=== PATIENT | female | born 1990 | race Caucasian/White ===

== ENCOUNTER 2019-10-13 16:05 | Outpatient (CLI) | payer OTHER, SELFPAY ==
--- NOTE | ~2019-10-13 | XR_ITS ---
XR foot LT min 3V DATE: 10/13/2019 16:39 INDICATION: Bilateral foot pain TECHNIQUE: 4 views COMPARISON: None FINDINGS: Os tibiale externum, normal variant. No fracture, dislocation, periosteal reaction or bone destruction. Joint spaces are preserved. No ero sive changes. IMPRESSION: Os tibiale externum, normal variant Reviewed, dictated and finalized at location A.
--- NOTE | ~2019-10-13 | XR_ITS ---
XR ankle LT min 3V DATE: 10/13/2019 16:39 INDICATION: Left ankle and bilateral foot pain TECHNIQUE: 4 views COMPARISON: None FINDINGS: No fracture or dislocation of the ankle or disruption of the ankle mortise. No periosteal r eaction or bone destruction. IMPRESSION: Negative Reviewed, dictated and finalized at location A. IMPRESSION: Negative
--- NOTE | ~2019-10-13 | XR_ITS ---
XR foot RT min 3V DATE: 10/13/2019 16:38 INDICATION: Bilateral foot pain TECHNIQUE: 4 views COMPARISON: None FINDINGS: Os tibiale externum, normal variant. No fracture, dislocation, periosteal reaction or bone destruction. Joint spaces are preserved. No ero sive changes. IMPRESSION: Os tibiale externum, normal variant Reviewed, dictated and finalized at location A.
== END 2019-10-13 16:06 | disposition home or self-care (01) ==
LOC: ANHIMG 16:15
PROVIDERS: PCP Nurse Practitioner Family; Visit Provider Nurse Practitioner Family
DX: M79.672 Pain in left foot (principal); M25.572 Pain in left ankle and joints of left foot; M79.671 Pain in right foot
CPT/HCPCS: 73610; 73630

== ENCOUNTER 2019-10-25 13:49 | Outpatient (RCR) | payer OTHER, SELFPAY ==
--- NOTE | 2019-10-25 15:17 | PTOPEVAL ---
PHYSICAL THERAPY EVALUATION AND PLAN OF CARE 10-25-2019 The PT evaluation was completed for the diagnosis of B ankle and foot pain. The plan of treatment is for 2x/week for 4 weeks. Thank you for referring Aniyah Gauthier to [facility]. Please review, sign, date and return this plan of care MARY. I agree with and certify that the following plan of care is medically necessary. Referring Physician Date Attending Provider: Kym Wilburn APRN *PT Outpatient Evaluation Start: 10/25/19 14:05 Document 10/25/19 14:06 AJAY (Rec: 10/25/19 15:07 AJAY [email or web address]) Assessment Status Evaluation Outpatient Past Medical History Past Medical History Source of Past Medical History Patient Neurological History Hx Migraine Yes: 2x/week, last 3-4 hours Cardiovascular History Hx Cardiac Disorders No Significant History Respiratory History Hx Respiratory Disorders No Significant History Gastrointestinal History Hx Gastrointestinal Disorders No Significant History Genitourinary History Hx Genitourinary Disorders No Significant History Musculoskeletal History Hx Back Pain Yes: prev chiropractor treatment:curvature of spine Hx Fractures Yes: L ankle fracture- non surgical; Hx Other Musculoskeletal Disorders Yes: B foot pain; B restless leg syndrome; obesity Endocrine History Hx Endocrine Disorders No Significant History HEENT History Hx Tonsillectomy Yes Psychosocial History Hx Anxiety Yes Evaluation Information Problem Diagnosis B foot and ankle pain Onset Apr 2019 Subjective Information gradual worsening pain after Query Text:As Reported By Patient/ working more; chronic pain B Family feet and ankles, have extra bone in feet; had flat feet as child and had L ankle fracture with cast; to see claim taker next week; had 4 ankle braces--hard and soft, sleeves and did not help; have not used arch support or insert into shoe; Diagnostic Tests X-Rays For This Problem Yes: extra bone in arch of feet Previous Treatments Previous Treatments For This Problem no previous PT Prior Level of Function Activity Level (Last 3 Months) 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
--- NOTE | 2019-11-13 10:51 | PCPTNOTE ---
PHYSICAL THERAPY DISCHARGE 11-13-2019 Attending Provider: Kym Wilburn APRN Patient:Aniyha Gauthier Date of :1990 Ms. Gauthier has not returned for any further treatments since the evaluation on 10/25/2019, for the diagnosis of B foot pain. Therefore she will be discharged at this time. The goals were not assessed. Thank you for referring Aniyah to [facility]. Please review, sign, date and return this discharge summary MARY. I have been updated about the patient's current status and I agree with discharge from the above service at this time. Referring Physician Date
== END 2020-01-23 23:59 | disposition home or self-care (01) ==
LOC: ANHPT 13:49
PROVIDERS: PCP Nurse Practitioner Family; Visit Provider Nurse Practitioner Family
DX: M92.61 Juvenile osteochondrosis of tarsus, right ankle (principal)
CPT/HCPCS: 97161

== ENCOUNTER 2020-11-16 20:55 | Emergency (ER) | payer OTHER, SELFPAY ==
[2020-11-16 21:05] VITALS: BP 161/90; PULSE 90; RESP 17; TEMP 36.5; O2SAT 97
[2020-11-17 00:16] VITALS: BP 113/80; PULSE 81; RESP 14; O2SAT 100
--- NOTE | 2020-11-17 00:16 | ED.GENADULT ---
HPI - General Adult General Chief complaint: Unspecified Stated complaint: COVID Positive,wants to see provider about sympto Time Seen by Provider: 11/17/20 00:09 History of Present Illness HPI narrative: Patient a 30-year-old female who presents the emergency department with chief complaint of dizziness and nasal burning. The patient reports she was diagnosed with COVID-19 about 10 days ago reports she is still having symptoms and still feeling unwell. The patient denies fever at this point but states that she still feels off reports that she has nasal burning denies shortness of breath denies chest pain denies vomiting denies diarrhea Related Data Home Medications Medication Instructions Recorded Confirmed cetirizine [Zyrtec] 10 mg PO DAILY 11/16/20 11/16/20 fluoxetine mg 11/16/20 loratadine [Claritin] 10 mg PO DAILY 11/16/20 11/16/20 topiramate 11/16/20 Allergies Allergy/AdvReac Type Severity Reaction Status Date / Time No Known Allergies Allergy Verified 11/16/20 21:29 Review of Systems Review of Systems: Narrative: A 10 system review of systems was completed on the patient and is negative except for what is stated in the HPI. Nursing and ancillary documentation was reviewed. [facility] Social History Social History Gender identity (if verbalized by the patient): Female Exam Narrative: Exam Narrative: GENERAL: Well-appearing, well-nourished, and in no acute distress. HEAD: Normocephalic, atraumatic. EYES: PERRLA and EOMI. ENT: Nares clear, no rhinorrhea or epistaxis. Mucous membranes moist. NECK: Supple. CHEST: Clear to auscultation. No respiratory distress. HEART: Regular rate and rhythm. No murmur heard. Normal peripheral pulses. ABDOMEN: Soft, nontender, nondistended, normal active bowel sounds. EXTREMITIES: Normal range of motion. No edema. SKIN: Warm, dry, no rash. NEURO: No focal deficits. Alert and oriented x3. PSYCH: Normal mood and affect. Course Vital Signs Vital signs: Vital Signs Temperature 36.5 C 11/16/20 21:05 Pulse Rate 90 11/16/20 21:05 Respiratory Rate 17 11/16/20 21:05 Blood Pressure 161/90 H 11/16/20 21:05 Pulse Oximetry 97 11/16/20 21:05 Temperature 36.5 C 11/16/20 21:05 Pulse Rate 90 11/16/20 21:05 Respiratory Rate 17 11/16/20 21:05 Blood Pressure 161/90 H 11/16/20 21:05 Pulse Oximetry 97 11/16/20 21:05 Medical Decision Making Vital Signs Vital Signs: Vital Signs Temperature 36.5 C 11/16/20 21:05 Pulse Rate 90 11/16/20 21:05 Respiratory Rate 17 11/16/20 21:05 Blood Pressure 161/90 H 11/16/20 21:05 Pulse Oximetry 97 11/16/20 21:05 Temperature 36.5 C 11/16/20 21:05 Pulse Rate 90 11/16/20 21:05 Respiratory Rate 17 11/16/20 21:05 Blood Pressure 161/90 H 11/16/20 21:05 Pulse Oximetry 97 11/16/20 21:05 Discharge Plan Discharge Clinical Impression: COVID-19 Patient Disposition: Home, Self-Care Condition: Stable Instructions: Antibiotic Form, COVID-19 (Coronavirus Disease 2019) (ED), Upper Respiratory Infection (ED) Prescriptions: No Action fluoxetine 40 mg capsule RF: 0 cetirizine [Zyrtec] 10 mg Tablet 10 mg PO DAILY RF: 0 topiramate 25 mg tablet RF: 0 loratadine [Claritin] 10 mg Tablet 10 mg PO DAILY RF: 0 Follow-up/Referrals: Cosmo,Kym Armando APRN [Primary Care Provider] - Stand Alone Forms: Work/School Release IP Time of Disposition: 00:18
--- NOTE | 2020-11-17 00:16 | PC.NURSE ---
Pt here after testing positive for covid 4 days ago. c/o nasal pain and dizziness. no s/s of acute distress. vitals obtained.
== END 2020-11-17 00:54 | disposition home or self-care (01) ==
PROVIDERS: Emergency Provider Emergency Medicine; PCP Nurse Practitioner Family
DX: U07.1 COVID-19 (principal)
CPT/HCPCS: 99281

== ENCOUNTER 2022-04-11 16:05 | Emergency (ER) | payer MEDICAID, SELFPAY ==
[2022-04-11] VITALS (10 sets, daily range): BP systolic 100–125; BP diastolic 61–76; PULSE 59–82; RESP 13–26; TEMP 36.6; O2SAT 100
--- NOTE | ~2022-04-11 | US_ITS ---
EXAMINATION: US OB <=14 wk fetus w TV INDICATION: abdominal pain TECHNIQUE: Sonography of the pelvis was performed by transabdominal and transvaginal techniques. COMPARISON: None. RESULT: Uterus: Orientation: Anteverted. 9.1 x 4.6 x 4.4 cm. Myometrium: homogeneous echogenicity. Cervix is long and closed. Gestation: - Intrauterine gestational sac: Single present. - Yolk sac: Present, not directly measured. - Embryo: Single present. - O'Brien rump length: 0.44 cm, corresponding gestational age 6 weeks, 1 days. -Gestational heart rate: present 109 bpm. -Subgestational hematoma: 0.7 x 1.0 x 0.9 cm hypoechoic collection adjacent to the gestational sac. Right ovary: 2.3 x 2.3 x 2.2 cm. Normal sonographic appearance with physiologic follicles. Corpus luteum. Left ovary: 1.9 x 2.1 x 1.7 cm. Normal sonographic appearance with physiologic follicles. . Pelvis free fluid: None. IMPRESSION: Single, live intrauterine gestation. Estimated Gestational Age: 6 weeks, 1 days by crown rump length. IRIS by ultrasound 12/04/2022. 1 cm mathews bgestational hematoma. Reviewed, dictated and finalized at location K. IMPRESSION: Single, live intrauterine gestation. Estimated Gestational Age: 6 weeks, 1 days by crown rump length. IRIS by ultras ound 12/04/2022. 1 cm subgestational hematoma.
[2022-04-11 16:59] LABS: Basophils Percent Auto 0.3 % (0.2-1.2); Eosinophils Absolute Auto 0.1 K/mm3 (0-0.3); Eosinophils Percent Auto 0.6 % (0-4.4); Hematocrit 44.2 % (37.0-47.0); Immature Granulocyte Absolute 0.03 K/mm3 (0.00-0.031); Immature Granulocyte Percent A 0.3 % (0-0.5); Lymphocytes Absolute Auto 2.07 K/mm3 (0.9-3.2); Lymphocytes Percent Auto 20.1 % (18.3-44.2); Mean Corpuscular HGB Conc 33.9 g/dl (32-36); Mean Corpuscular Hemoglobin 29.7 pg (26-34); Mean Corpuscular Volume 87.5 fl (80-100); Mean Platelet Volume 9.9 fl (7.4-10.4); Monocytes Absolute Auto 0.6 K/mm3 (0.1-0.6); Monocytes Percent Auto 6.2 % (2.6-8.5); Neutrophils Absolute Auto 7.5 K/mm3 (1.3-6.7); Neutrophils Percent Auto 72.5 % (45.5-73.1); Platelet Count Result 293 k/mm3 (150-375); Red Blood Count 5.05 M/mm3 (4.2-5.4); Red Cell Distribution Width 13.2 % (11.5-14.5); White Blood Count 10.3 K/mm3 (4.5-10.0)
[2022-04-11] MEDS: diphenhydrAMINE HCl INJ 50 MG/ML VIAL 25 MG IV PUSH (17:18)
[2022-04-11] MEDS: METOCLOPRAMIDE HCL INJ 10 MG/2 ML VIAL IV PUSH (17:18)
[2022-04-11] MEDS: DEXTROSE 5%/LACTATED RINGERS 1,000 ML 1000 ML IV CONT (17:20)
[2022-04-11] MEDS: LACTATED RINGERS 1,000 ML 999 ML IV CONT (17:20)
[2022-04-11 17:23] LABS: Alanine Aminotransferase 50 U/L (6-35); Albumin Level 4.5 g/dL (3.5-5.1); Alkaline Phosphatase 68 U/L (38-126); Anion Gap 10 mmol/L (8-16); Aspartate Amino Transferase 40 U/L (14-36); Bilirubin,Total 0.3 mg/dL (0.2-1.3); Blood Urea Nitrogen 11 mg/dL (7-17); Calcium 9.6 mg/dL (8.4-10.2); Carbon Dioxide 23 mmol/L (22-30); Chloride 102 mmol/L (98-107); Estimated CRCL calculation 106 ml/min; Estimated Glomerular Filt Rate > 60; Glucose 91 mg/dL (65-110); Lipase 67 U/L (23-300); Potassium 3.9 mmol/L (3.4-5.0); Sodium 135 mmol/L (137-145)
[2022-04-11 18:26] LABS: Add Urine Microscopic? NO; Appearance Urine Clear (Clear); Bilirubin Urine Negative (Negative); Blood Urine Negative (Negative); Color Urine Straw (Yellow); Glucose Urine UA Negative (Negative); Ketones Urine Negative (Negative); Leukocyte Esterase Ur Negative LEU/UL (Negative); Nitrate Urine Negative (Negative); Protein Urine Negative (Negative); Specific Grav Ur 1.006 (1.001-1.035); Urobilinogen Urine Negative mg/dL (<2.0)
--- NOTE | 2022-04-11 19:51 | ED.PREGNANCY ---
HPI - General Chief complaint: Nausea/Vomiting/Diarrhea Stated complaint: nausea, vomiting, migraine. 6 weeks Time Seen by Provider: 04/11/22 16:42 Source: patient and RN notes reviewed Mode of arrival: ambulatory Limitations: no limitations History of Present Illness HPI Narrative: This is a 31 year old female G1Po who presents for nausea and vomiting. Patient reports positive test march 30. She was unsure of her LMP in February so she went to [facility] for an ultrasound. She was told that there was a yolk sac but no pole and she needed repeat US. She reports intractable nausea and vomiting for 2 weeks. She took zofran today but she is still severely nauseous. She denies abdominal pain, vaginal bleeding, fever, chills, cough, chest pain or URI symptoms. She is going to make an appointment with [facility]. Related Data Home Medications Medication Instructions Recorded Confirmed cetirizine 10 mg tablet (Zyrtec) 10 mg PO DAILY 11/16/20 11/16/20 fluoxetine 40 mg capsule mg 11/16/20 loratadine 10 mg tablet (Claritin) 10 mg PO DAILY 11/16/20 11/16/20 topiramate 25 mg tablet 11/16/20 Allergies Allergy/AdvReac Type Severity Reaction Status Date / Time No Known Allergies Allergy Verified 11/16/20 21:29 Review of Systems Review of Systems: All systems reviewed & are unremarkable except as noted in HPI and below Constitutional: Constitutional: Denies chills and Reports fatigue Cardiovascular: Cardiovascular: Denies chest pain Gastrointestinal: Gastrointestinal: Denies abdominal pain, Reports nausea and Reports vomiting Genitourinary: Genitourinary: Denies abnormal vaginal bleeding, Denies nocturia, Denies dysuria and Denies pelvic pain PMFSH Past Medical History Medical History (Updated 04/11/22 @ 22:04 by Elsy Mott MD) Patient denies medical problems Surgical History Surgical History (Updated 04/11/22 @ 20:13 by Elsy Mott MD) No pertinent past surgical history Social History Social History (Updated 04/11/22 @ 20:13 by Elsy Mott MD) Smoking status: Never smoker Gender identity (if verbalized by the patient): Female Exam Const: General: no acute distress and alert Nutritional Appearance: well nourished Orientation/consciousness: patient oriented x3 HENMT: Head: normal to inspection Eyes: EOM: EOMs intact bilaterally Chest: Chest palpation & inspection: normal inspection of the chest Resp: Effort & Inspection: normal respiratory effort Auscultation: clear to auscultation bilaterally Cardio: Rate: regular rate Rhythm: regular rhythm Heart sounds: no murmurs GI: GI Palp: Yes Soft to palpation, No Tenderness to palpation present (GI), No Guarding due to palpation present (GI) and No Rigid due to palpation Auscultation: normal bowel sounds Skin: General skin exam: normal color Rashes: no rashes Wounds: no wounds Neuro: General: patient oriented x3, moves all extremities and CN's II-XI intact bilaterally Cranial nerves: Yes Nystagmus not present Extrem: General: normal to inspection Psych: Mental Status: mental status grossly normal Affect: normal affect Attitude: cooperative Course Reevaluation(s) Reevaluation #1: Patient reports her nausea and vomiting have improved. She was able to eat and drink without vomiting. She complained about abdominal pain so US was ordered. IUP was found. PAtient will be discharged. Date: 04/11/22 Time: 20:14 Reevaluation #2: PAtient reported she reporting nausea and requested more medication. She is now requesting discharge. Date: 04/11/22 Time: 22:03 Vital Signs Vital signs: Vital Signs Temperature 97.9 F 04/11/22 16:13 Pulse Rate 78 04/11/22 16:13 Respiratory Rate 20 04/11/22 16:13 Blood Pressure 119/68 04/11/22 16:13 Pulse Oximetry 100 04/11/22 16:13 Oxygen Delivery Room Air 04/11/22 16:13 Temperature 97.9 F 04/11/22
[2022-04-11] MEDS: PROMETHAZINE HCL 25 MG/ML AMPUL 12.5 MG IV PUSH (20:43)
== END 2022-04-11 22:41 | disposition home or self-care (01) ==
PROVIDERS: Physician Assistant; Emergency Provider General Practice; PCP Family Medicine
DX: O21.1 Hyperemesis gravidarum with metabolic disturbance (principal); Z3A.01 Less than 8 weeks gestation of pregnancy
CPT/HCPCS: 36415; 76801; 76817; 80053; 81003; 81025; 83690; 84702; 85025; 85461; 96361; 96365; 96375; 99284; J0131; J1200; J2550; J2765; J7120; J7121

== ENCOUNTER 2022-04-15 15:08 | Emergency (ER) | payer MEDICAID, SELFPAY ==
[2022-04-15 15:11] VITALS: BP 106/72; PULSE 70; RESP 16; TEMP 36.8; O2SAT 100
[2022-04-15 15:30] LABS: Basophils Percent Auto 0.3 % (0.2-1.2); Eosinophils Absolute Auto 0.1 K/mm3 (0-0.3); Eosinophils Percent Auto 0.9 % (0-4.4); Hematocrit 44.5 % (37.0-47.0); Hemoglobin 14.8 g/dL (12.0-15.0); Immature Granulocyte Absolute 0.02 K/mm3 (0.00-0.031); Immature Granulocyte Percent A 0.2 % (0-0.5); Lymphocytes Absolute Auto 2.29 K/mm3 (0.9-3.2); Lymphocytes Percent Auto 24.8 % (18.3-44.2); Mean Corpuscular HGB Conc 33.3 g/dl (32-36); Mean Corpuscular Hemoglobin 29.5 pg (26-34); Mean Corpuscular Volume 88.8 fl (80-100); Mean Platelet Volume 9.7 fl (7.4-10.4); Monocytes Absolute Auto 0.6 K/mm3 (0.1-0.6); Monocytes Percent Auto 6.8 % (2.6-8.5); Neutrophils Absolute Auto 6.2 K/mm3 (1.3-6.7); Platelet Count Result 277 k/mm3 (150-375); Red Blood Count 5.01 M/mm3 (4.2-5.4); Red Cell Distribution Width 13.2 % (11.5-14.5); White Blood Count 9.3 K/mm3 (4.5-10.0)
[2022-04-15 15:38] LABS: Add Urine Microscopic? NO; Appearance Urine Clear (Clear); Bilirubin Urine Negative (Negative); Blood Urine Negative (Negative); Color Urine Yellow (Yellow); Glucose Urine UA Negative (Negative); Ketones Urine Negative (Negative); Leukocyte Esterase Ur Negative LEU/UL (Negative); Nitrate Urine Negative (Negative); Protein Urine Negative (Negative); Specific Grav Ur 1.009 (1.001-1.035); Urobilinogen Urine Negative mg/dL (<2.0)
[2022-04-15 15:40] LABS: Alanine Aminotransferase 118 U/L (6-35); Albumin Level 4.5 g/dL (3.5-5.1); Alkaline Phosphatase 70 U/L (38-126); Anion Gap 8 mmol/L (8-16); Aspartate Amino Transferase 57 U/L (14-36); Bilirubin,Total 0.6 mg/dL (0.2-1.3); Blood Urea Nitrogen 11 mg/dL (7-17); Calcium 9.4 mg/dL (8.4-10.2); Carbon Dioxide 25 mmol/L (22-30); Chloride 101 mmol/L (98-107); Estimated CRCL calculation 106 ml/min; Estimated Glomerular Filt Rate > 60; Glucose 85 mg/dL (65-110); Lipase 47 U/L (23-300); Potassium 3.9 mmol/L (3.4-5.0); Sodium 134 mmol/L (137-145)
--- NOTE | 2022-04-15 16:46 | ED.NAVMDI ---
HPI - Nausea/Vomiting/Diarrhea General Chief complaint: Nausea/Vomiting/Diarrhea Stated complaint: n/v 6 weeks pg Time Seen by Provider: 04/15/22 15:59 History of Present Illness HPI Narrative: Patient is a 31-year-old G1, P0 female presenting with nausea and vomiting. Patient states that for the last week she has had persistent nausea and vomiting. She was seen here several days ago and her symptoms were controlled so she was able to go home with promethazine, Unisom, B6. Unfortunately, these have not controlled her symptoms and she states that she is still unable to keep anything down. She states at this point she is afraid to drink water because she immediately vomits. Patient has an appointment with [facility] on Wednesday with Dr. Baptiste but she feels she cannot wait that long as she has not been able to eat or drink. Patient states that she has had some random abdominal pains that are not consistent. She denies pain at this time. She denies vaginal bleeding or discharge, dysuria, lower back pain, pelvic pain. Related Data Home Medications Medication Instructions Recorded Confirmed cetirizine 10 mg tablet (Zyrtec) 10 mg PO DAILY 11/16/20 11/16/20 fluoxetine 40 mg capsule mg 11/16/20 loratadine 10 mg tablet (Claritin) 10 mg PO DAILY 11/16/20 11/16/20 topiramate 25 mg tablet 11/16/20 Allergies Allergy/AdvReac Type Severity Reaction Status Date / Time No Known Allergies Allergy Verified 04/15/22 15:16 Review of Systems Review of Systems: All systems reviewed & are unremarkable except as noted in HPI and below PMFSH Past Medical History Medical History Patient denies medical problems Surgical History Surgical History No pertinent past surgical history Social History Social History Smoking status: Never smoker Gender identity (if verbalized by the patient): Female Exam Narrative: GENERAL: Well-appearing, well-nourished, and in no acute distress. HEAD: Normocephalic, atraumatic. EYES: PERRLA and EOMI. ENT: Nares clear, no rhinorrhea or epistaxis. Mucous membranes moist. NECK: Supple. CHEST: Clear to auscultation. No respiratory distress. HEART: Regular rate and rhythm. No murmur heard. Normal peripheral pulses. ABDOMEN: Soft, nontender, nondistended, normal active bowel sounds. EXTREMITIES: Normal range of motion. No edema. SKIN: Warm, dry, no rash. NEURO: No focal deficits. Alert and oriented x3. PSYCH: Normal mood and affect. Course Course Emergency Course: Patient is a 31-year-old female with history as above presenting with nausea and vomiting in the setting of early . Vitals are within normal limits. Patient is nontoxic and in no acute distress. Exam remarkable for the above. Plan for IV Zofran and fluids. Blood work is unremarkable. Patient received 1.5 L of fluids as well as IV Zofran and feels significantly improved. She has tolerated Jell-O and juice. States that she feels very hungry at this time. I spoke with Dr. Baptiste who agrees with discharging the patient with oral dissolving Zofran. Patient states that she actually has full pack of this at home so she does not need a new prescription. Patient will follow up with Dr. Baptiste as scheduled in 2 days. Strict return precautions were given. Patient voiced understanding and is agreeable with plan. Discharged in stable condition. Vital Signs Vital signs: Vital Signs Temperature 98.2 F 04/15/22 15:11 Pulse Rate 70 04/15/22 15:11 Respiratory Rate 16 04/15/22 15:11 Blood Pressure 106/72 04/15/22 15:11 Pulse Oximetry 100 04/15/22 15:11 Oxygen Delivery Room Air 04/15/22 15:11 Temperature 98.2 F 04/15/22 15:11 Pulse Rate 70 04/15/22 20:52 Respiratory Rate 18 04/15/22 20:52 Blood Pressure 106/65 04/15/22 20:52 Pulse Oximetry 10
[2022-04-15] MEDS: SODIUM CHLORIDE 0.9% IV 1,000 ML 999 ML IV CONT ×2 (16:52→20:22)
[2022-04-15] MEDS: ONDANSETRON INJ 4 MG/2 ML VIAL IV PUSH (16:52)
[2022-04-15 19:38] VITALS: BP 86/67; PULSE 76; RESP 18; O2SAT 100
--- NOTE | 2022-04-15 19:54 | PC.NURSE ---
pt given crackers and juice. pt ate and drank 100% no nausea vomiting
[2022-04-15 20:52] VITALS: BP 106/65; PULSE 70; RESP 18; O2SAT 100
== END 2022-04-15 21:32 | disposition home or self-care (01) ==
PROVIDERS: General Practice; Emergency Provider Emergency Medicine; PCP Family Medicine
DX: O21.0 Mild hyperemesis gravidarum (principal); Z3A.01 Less than 8 weeks gestation of pregnancy
CPT/HCPCS: 36415; 80053; 81003; 83690; 84702; 85025; 96361; 96374; 99284; J2405; J7030

== ENCOUNTER 2022-06-04 14:51 | Emergency (ER) | payer BC, SELFPAY ==
[2022-06-04 15:14] VITALS: BP 111/61; PULSE 117; RESP 18; TEMP 37.3; O2SAT 100
[2022-06-04 16:04] LABS: Influenza A QL RT-PCR Positive (Negative); Influenza B QL RT-PCR Negative (Negative); RSV RNA, RT-PCR Negative (Negative); SARS-CoV-2 RNA PCR Negative
--- NOTE | 2022-06-04 17:49 | ED.URI ---
HPI - URI/Sore Throat General Chief Complaint: Upper Respiratory Infection Stated Complaint: SOB, cough, congestion, fever. 3 mo preg Time Seen by Provider: 06/04/22 17:49 Source: patient Mode of arrival: ambulatory Limitations: no limitations History of Present Illness HPI Narrative: Patient is a 31-year-old female who presents to the ED with report of URI sx's. Patient reports she developed upper respiratory symptoms yesterday, including subjective fever, chills, cough, congestion, runny nose, sore throat, nausea, myalgias. She has had a few episodes of emesis and posttussive emesis. She denies any chest pain. Today, she developed mild difficulty breathing, described as though she has mucus stuck in her throat. She was then referred to the ED by her CAMP ASSISTANT. Patient is currently 3 months . She denies any abdominal pain, vaginal bleeding. Patient has been taking Tylenol for her symptoms, last took 1 g at 3 PM. Related Data Home Medications Medication Instructions Recorded Confirmed cetirizine 10 mg tablet (Zyrtec) 10 mg PO DAILY 11/16/20 11/16/20 fluoxetine 40 mg capsule mg 11/16/20 loratadine 10 mg tablet (Claritin) 10 mg PO DAILY 11/16/20 11/16/20 topiramate 25 mg tablet 11/16/20 Allergies Allergy/AdvReac Type Severity Reaction Status Date / Time No Known Allergies Allergy Verified 04/15/22 15:16 Review of Systems Review of Systems: CONSTITUTIONAL: Reports fever, chills. ENT: Reports rhinorrhea, congestion, sore throat. CARDIOVASCULAR: Denies chest pain. RESPIRATORY: Reports cough and dyspnea. GASTROINTESTINAL: Reports N/V. Denies abdominal pain. GENITOURINARY: Denies vaginal bleeding, dysuria or hematuria. MUSCULOSKELETAL: Reports myalgias. NEUROLOGIC: Reports SHANKS. All systems reviewed & are unremarkable except as noted in HPI and below PMFSH Past Medical History Medical History Patient denies medical problems Surgical History Surgical History No pertinent past surgical history Social History Social History Smoking status: Never smoker Gender identity (if verbalized by the patient): Female Exam Narrative: GENERAL: Mildly ill appearing, well-nourished, non-toxic, in no acute distress. HEAD: Normocephalic, atraumatic. EYES: PERRLA/EOMI, conjunctiva clear. ENT: No nasal discharge. Hoarse voice. Patient w/ upper respiratory noises on exam, no actual stridor. Mild posterior pharynx erythema, no tonsillar hypertrophy or exudate. Uvula normal appearing. NECK: Supple. No adenopathy, no masses. RESPIRATORY: Airway patent, respirations nonlabored. Clear to auscultation bilaterally, no rales, rhonchi, wheezing. No distress or tachypnea. CARDIOVASCULAR: Regular rate and rhythm without murmurs, rubs, or gallops. Peripheral pulses 2+ and equal bilaterally. ABDOMINAL: Uterus gravid. Soft, nontender, nondistended, no hepatosplenomegaly. Normoactive BS. MUSCULOSKELETAL: Moves all extremities. Strength/ROM intact without gross deformities. SKIN: Warm, dry, normal color. No rashes. NEURO: A&O X3. Speech clear. Cranial nerves II-XII grossly intact. Steady gait. No ataxic movements. PSYCHIATRIC: Appropriate mood and affect. Normal interaction. Course Consultations Consultation #1: Discussed case with Dr. Baptiste, CAMP ASSISTANT, made aware of ED visit. Date: 06/04/22 Vital Signs Vital signs: Vital Signs Temperature 99.1 F 06/04/22 15:14 Pulse Rate 117 H 06/04/22 15:14 Respiratory Rate 18 06/04/22 15:14 Blood Pressure 111/61 06/04/22 15:14 Pulse Oximetry 100 06/04/22 15:14 Oxygen Delivery Room Air 06/04/22 15:14 Temperature 99.1 F 06/04/22 15:14 Pulse Rate 117 H 06/04/22 15:14 Respiratory Rate 18 06/04/22 15:14 Blood Pressure 111/61 06/04/22 15:14 Pulse Oximetry 100 06/04/22 15:14 Oxygen Deli
[2022-06-04 19:03] LABS: Basophils Percent Auto 0.2 % (0.2-1.2); Eosinophils Percent Auto 0.1 % (0-4.4); Hematocrit 37.9 % (37.0-47.0); Hemoglobin 13.2 g/dL (12.0-15.0); Immature Granulocyte Absolute 0.03 K/mm3 (0.00-0.031); Immature Granulocyte Percent A 0.3 % (0-0.5); Lymphocytes Absolute Auto 0.47 K/mm3 (0.9-3.2); Lymphocytes Percent Auto 5.3 % (18.3-44.2); Mean Corpuscular HGB Conc 34.8 g/dl (32-36); Mean Corpuscular Hemoglobin 29.5 pg (26-34); Mean Corpuscular Volume 84.8 fl (80-100); Monocytes Absolute Auto 0.6 K/mm3 (0.1-0.6); Monocytes Percent Auto 6.5 % (2.6-8.5); Neutrophils Absolute Auto 7.8 K/mm3 (1.3-6.7); Neutrophils Percent Auto 87.6 % (45.5-73.1); Platelet Count Result 206 k/mm3 (150-375); Red Blood Count 4.47 M/mm3 (4.2-5.4); Red Cell Distribution Width 12.8 % (11.5-14.5); White Blood Count 8.9 K/mm3 (4.5-10.0)
[2022-06-04] MEDS: SODIUM CHLORIDE 0.9% IV 1,000 ML 999 ML IV CONT ×2 (19:03→19:50)
[2022-06-04] MEDS: OSELTAMIVIR PHOSPHATE 75 MG CAPSULE PO (19:04)
[2022-06-04] MEDS: ONDANSETRON INJ 4 MG/2 ML VIAL IV PUSH (19:04)
[2022-06-04 19:13] LABS: Alanine Aminotransferase 18 U/L (6-35); Albumin Level 3.8 g/dL (3.5-5.1); Alkaline Phosphatase 63 U/L (38-126); Anion Gap 8 mmol/L (8-16); Aspartate Amino Transferase 25 U/L (14-36); Bilirubin,Total 0.3 mg/dL (0.2-1.3); Blood Urea Nitrogen 6 mg/dL (7-17); Calcium 8.9 mg/dL (8.4-10.2); Carbon Dioxide 23 mmol/L (22-30); Chloride 98 mmol/L (98-107); Estimated CRCL calculation 142 ml/min; Estimated Glomerular Filt Rate > 60; Glucose 90 mg/dL (65-110); Potassium 3.7 mmol/L (3.4-5.0); Sodium 129 mmol/L (137-145)
[2022-06-04 20:42] LABS: Anion Gap 7 mmol/L (8-16); Blood Urea Nitrogen 6 mg/dL (7-17); Calcium 8.2 mg/dL (8.4-10.2); Carbon Dioxide 22 mmol/L (22-30); Chloride 103 mmol/L (98-107); Estimated CRCL calculation 173 ml/min; Estimated Glomerular Filt Rate > 60; Glucose 90 mg/dL (65-110); Potassium 3.7 mmol/L (3.4-5.0); Sodium 132 mmol/L (137-145)
[2022-06-04 21:32] VITALS: BP 122/78; PULSE 78; RESP 20; O2SAT 99
== END 2022-06-04 21:33 | disposition home or self-care (01) ==
PROVIDERS: Emergency Medicine; Emergency Provider Physician Assistant; PCP Family Medicine
DX: O99.511 Diseases of the respiratory system complicating pregnancy, first trimester (principal); J10.1 Influenza due to other identified influenza virus with other respiratory manifestations; Z3A.12 12 weeks gestation of pregnancy; Z20.822 Contact with and (suspected) exposure to COVID-19
CPT/HCPCS: 36415; 80048; 80053; 85025; 87637; 96361; 96374; 99284; A9270; J2405; J7030

== ENCOUNTER 2022-11-27 05:13 | Inpatient (IN) | payer OTHER, SELFPAY ==
[2022-11-27] VITALS (175 sets, daily range): BP systolic 88–147; BP diastolic 36–102; PULSE 30–144; RESP 14; TEMP 36.2–37.1; O2SAT 85–100; BMI 41.3
--- NOTE | 2022-11-27 06:05 | PC.NURSE ---
Called Kym about patients arrival to unit about leaking of fluid and contractions. reported that her ROM plus way positive. Pt reports leaking started at 0400 and it was yellow/green. Reported to Kym that unsure of contraction pattern at this time due to patient on and off monitor due to up to restroom. Orders to admit patient and she will come to unit in about an hour to discuss plan of care with patient and day shift nurse.
[2022-11-27] MEDS: fentaNYL CITRATE INJ (*CRX) 100 MCG/2 ML VIAL 50 MCG IV PUSH (06:57)
[2022-11-27 06:58] LABS: Basophils Percent Auto 0.2 % (0.2-1.2); Eosinophils Absolute Auto 0.1 K/mm3 (0-0.3); Eosinophils Percent Auto 0.9 % (0-4.4); Hematocrit 41.6 % (37.0-47.0); Immature Granulocyte Absolute 0.07 K/mm3 (0.00-0.031); Immature Granulocyte Percent A 0.7 % (0-0.5); Lymphocytes Absolute Auto 1.68 K/mm3 (0.9-3.2); Lymphocytes Percent Auto 16.9 % (18.3-44.2); Mean Corpuscular HGB Conc 33.7 g/dl (32-36); Mean Corpuscular Hemoglobin 29.7 pg (26-34); Mean Corpuscular Volume 88.1 fl (80-100); Mean Platelet Volume 11.3 fl (7.4-10.4); Monocytes Absolute Auto 0.8 K/mm3 (0.1-0.6); Monocytes Percent Auto 7.6 % (2.6-8.5); Neutrophils Absolute Auto 7.3 K/mm3 (1.3-6.7); Neutrophils Percent Auto 73.7 % (45.5-73.1); Platelet Count Result 236 k/mm3 (150-375); Red Blood Count 4.72 M/mm3 (4.2-5.4); Red Cell Distribution Width 14.9 % (11.5-14.5)
[2022-11-27] MEDS: LACTATED RINGERS 1,000 ML 125 ML IV CONT ×2 (06:59→15:15)
--- NOTE | 2022-11-27 07:13 | LDADM ---
This patient, Aniyah Gauthier, was admitted to Labor/Delivery/Recovery 104 on 11/27/22 at 05:13. Plans for labor, pain management and were discussed with patient. Patient/family oriented to hospital policies and general routines including ID bracelet, bed and alarms, visiting hours, pain management, procedures, bathroom and other care routines, personal items, smoking policy, room service/diet and guest tray routines, infant security routines, and visiting hours. Patient/Family are encouraged to report perceived risks to care and to ask questions if they do not understand what they are told or what they should do. See OBIX for further documentation.
[2022-11-27 07:16] LABS: Alanine Aminotransferase 19 U/L (6-35); Albumin Level 3.4 g/dL (3.5-5.1); Alkaline Phosphatase 291 U/L (38-126); Anion Gap 6 mmol/L (8-16); Aspartate Amino Transferase 28 U/L (14-36); Bilirubin,Total 0.4 mg/dL (0.2-1.3); Blood Urea Nitrogen 11 mg/dL (7-17); Calcium 8.9 mg/dL (8.4-10.2); Carbon Dioxide 20 mmol/L (22-30); Chloride 105 mmol/L (98-107); Estimated Glomerular Filt Rate > 60; Glucose 97 mg/dL (65-110); Potassium 4.3 mmol/L (3.4-5.0); Sodium 131 mmol/L (137-145)
--- NOTE | 2022-11-27 07:16 | WPDOBADMIT ---
Obstetrics - Admit Note Admission Note: record reviewed. No pertinent additions to the history and/or any subsequent changes in the physical findings that are not consistent with the expected course of the were found. Admit to LD after SROM, meconium fluid noted by RN, pt awaiting epidural, plan pitocin and anticipate vaginal delivery Additions to the history and/or subsequent changes in the physical findings follow. None.
[2022-11-27 08:54] LABS: Appearance Urine Clear (Clear); Bacteria Urine None Seen /hpf; Bilirubin Urine Negative (Negative); Blood Urine Negative (Negative); Color Urine Yellow (Yellow); Glucose Urine UA Negative (Negative); Ketones Urine Negative (Negative); Leukocyte Esterase Ur Negative LEU/UL (Negative); Nitrate Urine Negative (Negative); Non Pathogenic Casts 0-2; Protein Urine Trace mg/dL (Negative); RBC Urine 0-2 /hpf (0-2); Specific Grav Ur 1.023 (1.001-1.035); Squamous Epithelial Cell Urine None seen /hpf (Few); Urobilinogen Urine 0.2 mg/dL (<2.0); WBC Urine 0-5 /hpf
[2022-11-27 08:58] LABS: Add Urine Microscopic? YES
[2022-11-27 09:01] LABS: Rapid Plasma Reagin Non-Reactive (NonReactive)
[2022-11-27] MEDS: OXYTOCIN 30 UNITS/NS 500 ML 30 UNITS/500 ML BAG IV CONT (09:59)
[2022-11-27] MEDS: ONDANSETRON INJ 4 MG/2 ML VIAL IV PUSH ×2 (10:10→16:49)
[2022-11-27 11:18] LABS: Glucose Point of Care 82 mg/dl (65-105)
[2022-11-27] MEDS: PHENYLEPHRINE 1,000 MCG/10 ML SYRINGE 100 MCG IV PUSH (14:40)
[2022-11-27 15:21] LABS: Glucose Point of Care 75 mg/dl (65-105)
--- NOTE | 2022-11-27 17:15 | P.PCNOB_ITS ---
OB - Delivery Note Procedure Delivery date: 11/27/22 Procedure: Events: Gestational Diabetes and Other (Cholestasis) Intrapartal Events: Other (meconium) Delivery augmentation: Pitocin Delivery monitor: External FHT, External Uterine and Internal FHT Route of delivery: Episiotomy description: None Laceration Description: Perineal - 1st Degree Delivery repair: vicryl Specimen: Yes Quantitative Blood Loss (ml): 200 Anesthesia type: Local [place] Baby Date of : 11/27/22 Time of : 17:00 Weeks of gestation at delivery: 39 Infant gender: Female presentation: vertex position: Left Occiput Anterior Placenta delivery description: Spontaneous Cord Vessel Description: 3 Vessels, Clamped/Cut and Delayed Cord Clamping score one minute: 8 score five minutes: 9
[2022-11-27] MEDS: OXYTOCIN 30 UNITS/NS 500 ML 30 UNITS/500 ML BAG 125 UNITS IV CONT (17:33)
[2022-11-27] MEDS: IBUPROFEN 600 MG TABLET PO (17:58)
[2022-11-27] MEDS: BENZOCAINE 20% AER SPR (*SP) 56 GM CAN 1 SPRAY TOPICAL (19:48)
[2022-11-27] MEDS: WITCH HAZEL 40 PADS 1 PAD TOPICAL (19:49)
[2022-11-27] MEDS: ACETAMINOPHEN 325 MG TABLET 650 MG PO (21:13)
[2022-11-27] MEDS: busPIRone HCL 5 MG TABLET PO (23:19)
[2022-11-27] MEDS: FLUoxetine HCL 20 MG CAPSULE 40 MG PO (23:19)
[2022-11-28 00:15] VITALS: BP 113/72; PULSE 81; RESP 16; TEMP 37.2; O2SAT 98
[2022-11-28] MEDS: IBUPROFEN 600 MG TABLET PO ×3 (00:30→15:24)
[2022-11-28 05:39] LABS: Hematocrit 35.2 % (37.0-47.0); Hemoglobin 11.8 g/dL (12.0-15.0)
--- NOTE | 2022-11-28 05:49 | OBPPTRN ---
2024 Patient transferred to post room 282 via wheelchair. Oriented to unit, room, information board, rooming in, admission packet and security measures. Patient verbalizes understanding.
--- NOTE | 2022-11-28 06:32 | PM.OBPNVD ---
OB - PN: Subj Subjective Date/time seen: 11/28/22 06:32 Patient comments: no complaints, pain well controlled, incisional pain, tolerating diet and flatus present OB - PN: Obj Data Labs 11/28/22 04:29 11/27/22 06:44 Labs: Laboratory Results - last 24 hr 11/27/22 11/27/22 11/27/22 06:43 06:44 08:38 WBC 10.0 RBC 4.72 Hgb 14.0 Hct 41.6 MCV 88.1 MCH 29.7 MCHC 33.7 RDW 14.9 H Plt Count 236 MPV 11.3 H Immature Gran % (Auto) 0.7 H Neut % (Auto) 73.7 H Lymph % (Auto) 16.9 L [place] % (Auto) 7.6 Eos % (Auto) 0.9 Baso % (Auto) 0.2 Lymph # (Auto) 1.68 [place] # (Auto) 0.8 H Eos # (Auto) 0.1 Baso # (Auto) 0.0 Abs Immat Gran (auto) 0.07 H Absolute Neuts (auto) 7.3 H Absolute Nucleated RBC 0.0 Nucleated RBC % 0.0 Sodium 131 L Potassium 4.3 Chloride 105 Carbon Dioxide 20 L Anion Gap 6 L BUN 11 D Creatinine 0.50 L Estim Creat Clear Calc Not Reportable Estimated GFR > 60 Glucose 97 POC Capillary Glucose Calcium 8.9 Total Bilirubin 0.4 AST 28 ALT 19 Alkaline Phosphatase 291 H Total Protein 7.0 Albumin 3.4 L Urine Color Yellow Urine Appearance Clear Urine pH 6.0 Ur Specific [place] 1.023 Urine Protein Trace Urine Glucose (UA) Negative Urine Ketones Negative Ur Blood (Man) Negative Urine Nitrate Negative Urine Bilirubin Negative Urine Urobilinogen 0.2 Leukocyte Esterase Rfl Negative Urine RBC 0-2 Urine WBC 0-5 Ur Squamous Epith Cells None seen Urine Bacteria None seen Urine Casts 0-2 RPR Non-reactive Blood Type O Positive Antibody Screen Negative 11/27/22 11/27/22 11/28/22 11:09 15:19 04:29 WBC RBC Hgb 11.8 L Hct 35.2 L MCV MCH MCHC RDW Plt Count MPV Immature Gran % (Auto) Neut % (Auto) Lymph % (Auto) [place] % (Auto) Eos % (Auto) Baso % (Auto) Lymph # (Auto) [place] # (Auto) Eos # (Auto) Baso # (Auto) Abs Immat Gran (auto) Absolute Neuts (auto) Absolute Nucleated RBC Nucleated RBC % Sodium Potassium Chloride Carbon Dioxide Anion Gap BUN Creatinine Estim Creat Clear Calc Estimated GFR Glucose POC Capillary Glucose 82 75 Calcium Total Bilirubin AST ALT Alkaline Phosphatase Total Protein Albumin Urine Color Urine Appearance Urine pH Ur Specific [place] Urine Protein Urine Glucose (UA) Urine Ketones Ur Blood (Man) Urine Nitrate Urine Bilirubin Urine Urobilinogen Leukocyte Esterase Rfl Urine RBC Urine WBC Ur Squamous Epith Cells Urine Bacteria Urine Casts RPR Blood Type Antibody Screen OB - PN A/P Plan day: 1 Plan: routine care Comments: No problems, routine care Time Spent With Patient Time: Total time spent is greater than 50% in coordination of care (as documented) at patient's floor/unit and/or counseling patient: Exam Const: General: comfortable, no acute distress and alert Resp: Effort & Inspection: normal respiratory effort Auscultation: no crackles, no rales and no rhonchi Cardio: Rate: regular rate Heart sounds: no click, no murmurs and no rubs GI: Inspection: non-distended GI Palp: No Tenderness to palpation present (GI) Auscultation: normal bowel sounds Other: Incision - CDI Extrem: General: normal to inspection, no pedal edema and no calf tenderness
[2022-11-28 07:00] VITALS: BP 118/71; PULSE 89; RESP 16; TEMP 36.8; O2SAT 99
--- NOTE | 2022-11-28 07:41 | WPDANLDPN2 ---
Anes-Prog Note L&D Date/Time: 11/28/22 07:41 Comfortable throughout: labor and delivery Neuraxial method: epidural Epidural/Spinal procedure site: clean & non-tender Neuro status: Neuro function grossly intact. Cardiovascular status: normal Respiratory status: normal Airway patency: baseline Mental status: baseline Post-Op hydration status: normal Vital Signs: Last Vital Signs Temp 37.2 C 11/28/22 00:15 Pulse 81 11/28/22 00:15 Resp 16 11/28/22 00:15 BP 113/72 11/28/22 00:15 Pulse Ox 98 11/28/22 00:15 O2 Del Method Room Air 11/27/22 07:04 Pain score (VAS): 1 I/O: Intake & Output 11/27/22 11/27/22 11/28/22 15:59 23:59 07:59 Intake Total 1000 Output Total 255 Balance 1000 -255 Post-procedural complaints: none Patient feedback: Patient satisfied with anesthetic care.
[2022-11-28] MEDS: LORATADINE 10 MG TABLET PO (08:52)
[2022-11-28] MEDS: valACYclovir HCL 500 MG TABLET 1000 MG PO (08:52)
[2022-11-28] MEDS: MULTIVIT/MIN/PREN/FOL AC/IRON TABLET 1 TAB PO (08:52)
[2022-11-28] MEDS: ACETAMINOPHEN 325 MG TABLET 650 MG PO ×2 (11:15→17:37)
[2022-11-28] MEDS: busPIRone HCL 5 MG TABLET PO ×2 (11:15→22:49)
[2022-11-28] MEDS: FLUoxetine HCL 20 MG CAPSULE 40 MG PO (11:15)
[2022-11-28 15:30] VITALS: BP 113/77; PULSE 72; RESP 16; TEMP 36.8; O2SAT 100
[2022-11-28 18:55] VITALS: BP 124/83; PULSE 60; RESP 16; TEMP 36.6; O2SAT 99
[2022-11-29] MEDS: IBUPROFEN 600 MG TABLET PO ×2 (00:22→06:28)
[2022-11-29] MEDS: ACETAMINOPHEN 325 MG TABLET 650 MG PO ×2 (00:23→06:28)
--- NOTE | 2022-11-29 04:23 | PC.NURSE ---
11/28/2022 at 2200. 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 We discussed the importance of her using excellent hand washing after using the bathroom. We also discussed the importance of getting and taking Valtrex when she has an outbreak. Mother stated understanding. We also discussed the possibility of mother transferring HSV to baby and what she could possibly see in baby which could possibly be neurological symptoms such as seizures, etc. Baby could also have a fever, not acting right, not feeding well, lethargy, etc. I suggested she review with the cutter inspector before she leaves [place] for the symptoms to look out for and to be sure and mention to the doctor when she calls if baby has any of these symptoms that she is HSV positive. I also suggested she review her status with her new cutter inspector. Aniyah states understanding.
[2022-11-29 08:55] VITALS: BP 119/83; PULSE 72; RESP 16; TEMP 36.8; O2SAT 100
[2022-11-29] MEDS: FLUoxetine HCL 20 MG CAPSULE 40 MG PO (10:58)
[2022-11-29] MEDS: LORATADINE 10 MG TABLET PO (10:58)
[2022-11-29] MEDS: busPIRone HCL 5 MG TABLET PO (10:58)
--- NOTE | 2022-11-29 13:01 | PM.OBPNVD ---
OB - PN: Subj Subjective Date/time seen: 11/29/22 13:01 Patient comments: no complaints, pain well controlled and tolerating diet OB - PN: Obj Data Labs 11/28/22 04:29 11/27/22 06:44 OB - PN A/P Plan day: 2 Plan: routine care and discharge home Time Spent With Patient Time: Total time spent is greater than 50% in coordination of care (as documented) at patient's floor/unit and/or counseling patient: Exam Const: General: comfortable and no acute distress Resp: Effort & Inspection: normal respiratory effort Auscultation: no rales, no rhonchi and no wheezes Cardio: Rate: regular rate Heart sounds: no click, no murmurs and no rubs GI: GI Palp: Yes Soft to palpation and No Tenderness to palpation present (GI) Auscultation: normal bowel sounds Extrem: General: normal to inspection, no pedal edema and no calf tenderness
--- NOTE | 2022-11-29 13:02 | PM.OBDSVD ---
DS: Admitting Diagnosis Discharge Date 11/29/2022 Admitting Diagnosis TERM DS: Discharge Diagnosis Discharge Diagnosis (1) Term delivered: Code(s): O80 - Encounter for full-term uncomplicated delivery Status: Acute OB - DS: Summary OB Procedures : None OB Procedures Intrapartum: Spontaneous Vag Delivery OB Procedures: : None Time Spent with Patient Time attestation: Total time spent providing and/or coordinating discharge services: DS: Data Data Completed and Pending Pending studies at discharge: Pending at discharge 11/27/22 17:10 Surgical [PTH] Routine Discharge Plan Discharge Discharging Clinician: Luna Baptiste Patient Disposition: Home, Self-Care Activity: pelvic rest Diet: regular Patient Instructions: Antibiotic Form Stand Alone Forms: General Discharge Information Follow-up/Referrals: Luna Baptiste MD [Physician] - Discharge Medications: Continued fluoxetine 40 mg capsule 40 mg PO DAILY cetirizine [Zyrtec] 10 mg Tablet 10 mg PO DAILY #2 Tablet 1 tablet PO HS buspirone [BuSpar] 5 mg Tablet 5 mg PO BID valacyclovir [Valtrex] 1 gram Tablet 1,000 mg PO BID ondansetron HCl [Zofran] 4 mg Tablet 4 mg PO Q6H PRN (Reason: Nausea And Vomiting) xvosxpmizg-nzwqzyfbytash-moir 50-300-40 mg Capsule 1 cap PO Q4H PRN (Reason: Headache) Date of admission: 11/27/22 05:13 Primary Care Provider: Mikey*Brittany Wilburn Admitting Provider: Luna Baptiste Attending physician on admission: Luna Baptiste Condition: Stable
[2022-11-29 13:20] VITALS: BP 130/90; PULSE 85
[2022-11-29 13:31] LABS: Glucose Point of Care 81 mg/dl (65-105)
--- NOTE | 2022-11-29 14:52 | PC.NURSE ---
Patient viewed the discharge video Mother & Baby Care, The First Two Weeks . Patient was given the opportunity and encouraged to ask questions. Patient verbalized understanding of information shared and has been given the mother/baby guide for home reference.
[2022-12-01 08:24] VITALS: BP 132/91; PULSE 85; RESP 16; TEMP 36.9; O2SAT 100
== END 2022-11-29 15:35 | disposition home or self-care (01) | DRG 560 ==
LOC: ANHLDR 06:18 → ANHOB2 20:25
PROVIDERS: Advanced Practice Midwife; Admitting Provider Obstetrics & Gynecology; PCP Nurse Practitioner Family; Visit Provider Obstetrics & Gynecology
DX: O24.429 Gestational diabetes mellitus in childbirth, unspecified control (principal); K83.1 Obstruction of bile duct; Z37.0 Single live birth; O70.0 First degree perineal laceration during delivery; Z3A.39 39 weeks gestation of pregnancy; O77.0 Labor and delivery complicated by meconium in amniotic fluid; O26.62 Liver and biliary tract disorders in childbirth
CPT/HCPCS: 36415; 80053; 81001; 82948; 84112; 85014; 85018; 85025; 86592; 86850; 86900; 86901; 88307; A9270; J2370; J2405; J2590; J2795; J3010; J7120

== ENCOUNTER 2024-01-03 04:27 | Emergency (ER) | payer OTHER, SELFPAY ==
[2024-01-03] VITALS (8 sets, daily range): BP systolic 113–122; BP diastolic 71–78; PULSE 98–107; RESP 9–24; TEMP 36.5; O2SAT 97–100
--- NOTE | ~2024-01-03 | CT_ITS ---
Clinical Indication: Chest pain, shortness of breath, abdominal pain CT Scan of the Chest, Abdomen, and Pelvis with Contrast: Technique: Contiguous sections were acquired throughout the chest, abdomen, and pelvis after intraven ous administration of 100 cc of Omnipaque 350. Dose reduction technique was used on this scan by uti princessing automated exposure control and iterative reconstruction technique. The dose-length product (DL P) was 2060.42 mGy-cm. Findings: There is no evidence of any significant mediastinal, hilar or axillary lymphadenopathy. The mediastin al soft tissues appear normal. No pulmonary embolus seen. No aortic aneurysm or dissection. There is no evidence of pleural or pericardial effusion. The lungs are clear. No pulmonary nodules or infiltrates are noted. The liver, spleen, pancreas, gallbladder, adrenals and kidneys are within normal limits. No evidence of aortic aneurysm. No lymphadenopathy. No bowel obstruction or bowel wall thickening. There is no evidence to suggest acute appendicitis. Urinary bladder is unremarkable. No pelvic mass seen. Trace pelvic ascites. Impression: Trace pelvic ascites, which may be physiologic in a young woman. No other significant findings. Reviewed, dictated and finalized at [facility]. Impression: Trace pelvic ascites, which may be physiologic in a young woman. No other significant findings.
--- NOTE | ~2024-01-03 | XR_ITS ---
Portable chest x-ray Comparison: None Clinical History: Chest pain Findings: Lungs are clear, without focal consolidation or pleural effusion. Cardiomediastinal silho uette is unremarkable. Bones and soft tissues are unremarkable. Impression: Normal chest. Reviewed, dictated and finalized at location [facility]. Impression: Normal chest.
--- NOTE | 2024-01-03 04:33 | ECG_ITS ---
Test Date: 2024-01-03 04:32:58 Measurements Intervals [place] Rate: 97 P: 44 IA: 155 QRS: 14 QRSD: 90 T: -15 QT: 322 QTc: 410 Interpretive Statements SINUS RHYTHM NONSPECIFIC ST-T WAVE ABNORMALITY- ANTEROLAT/INF LEADS BORDERLINE ECG No previous ECG available for comparison Electronically Signed On 01-03-2024 05:58:10 CDT by Danny Kang D.O.
--- NOTE | 2024-01-03 04:36 | ED.GENADULT ---
HPI - General Adult General Chief complaint: Chest Pain Stated complaint: CHEST/EPIGASTRIC PAIN Time Seen by Provider: 01/03/24 04:27 History of Present Illness HPI narrative: Patient 33-year-old female presents emergency department chief complaint of epigastric and chest pain. Patient reports that she has had nausea and belching patient reports the pain radiates up into her chest the patient states that she thinks she may be having a heart attack and reports that she also could be having blood clots because she feels as though she had blood clots in her legs that have traveled up through her body into her chest Related Data Home Medications Medication Instructions Recorded Confirmed cetirizine 10 mg tablet (Zyrtec) 10 mg PO DAILY 11/16/20 11/27/22 fluoxetine 40 mg capsule 40 mg PO DAILY 11/16/20 11/27/22 buspirone 5 mg tablet 5 mg PO BID 11/13/22 11/27/22 nsbbiterms-whsuwimsrvyae-beffbnsz 1 cap PO Q4H PRN Headache 11/13/22 11/27/22 50 mg-300 mg-40 mg capsule ondansetron HCl 4 mg tablet 4 mg PO Q6H PRN Nausea And Vomiting 11/13/22 11/27/22 prenat.vits,prudencio,tet-bexi-rwvsw 1 tablet PO HS 11/13/22 11/27/22 valacyclovir 1 gram tablet 1,000 mg PO BID 11/13/22 11/27/22 (Valtrex) Allergies Allergy/AdvReac Type Severity Reaction Status Date / Time No Known Allergies Allergy Verified 01/03/24 04:32 Review of Systems Review of Systems: A 10 system review of systems was completed on the patient and is negative except for what is stated in the HPI. Nursing and ancillary documentation was reviewed. [facility] Past Medical History Medical History Patient denies medical problems Surgical History Surgical History No pertinent past surgical history Social History Social History Smoking status: Never smoker Substance use: never Lack of Transportation: No Lack of Food: Never True Current Housing: I Have Housing Concerned About Future Housing: No Difficulty Paying Gas/Electric Bills: No Difficulty Paying for Meds: No Currently Unemployed: No Education: High School Diploma/GED Difficulty w/ Childcare or Family Care: No Gender identity (if verbalized by the patient): Female Spiritual care concerns: No Exam Narrative: GENERAL: Well-appearing, well-nourished, and in no acute distress. HEAD: Normocephalic, atraumatic. EYES: PERRLA and EOMI. ENT: Nares clear, no rhinorrhea or epistaxis. Mucous membranes moist. NECK: Supple. CHEST: Clear to auscultation. No respiratory distress. HEART: Regular rate and rhythm. No murmur heard. Normal peripheral pulses. ABDOMEN: Soft, tenderness to palpation in the epigastric and right upper quadrant, nondistended, normal active bowel sounds. EXTREMITIES: Normal range of motion. No edema. SKIN: Warm, dry, no rash. NEURO: No focal deficits. Alert and oriented x3. PSYCH: Normal mood and affect. Course Vital Signs Vital signs: Vital Signs Temperature 36.5 C 01/03/24 04:26 Pulse Rate 103 H 01/03/24 04:26 Respiratory Rate 24 H 01/03/24 04:26 Blood Pressure 122/75 01/03/24 04:26 Pulse Oximetry 100 01/03/24 04:26 Oxygen Delivery Room Air 01/03/24 04:26 Temperature 36.5 C 01/03/24 04:26 Pulse Rate 107 H 01/03/24 05:31 Respiratory Rate 24 H 01/03/24 05:31 Blood Pressure 115/78 01/03/24 05:31 Pulse Oximetry 97 01/03/24 05:31 Oxygen Delivery Room Air 01/03/24 04:32 Medical Decision Making [facility] Narrative Medical decision making narrative: Differential diagnosis includes cholecystitis, choledocholithiasis, intra-abdominal infection, pulmonary embolism, aortic dissection/aneurysm, ACS, EKG showed no acute ischemic changes CTA chest with abdomen pelvis showed no evidence of pulmonary embolism and no evidence of acute intra-abdomin
[2024-01-03 04:43] LABS: Basophils Percent Auto 0.1 % (0.2-1.2); Eosinophils Absolute Auto 0.1 K/mm3 (0-0.3); Eosinophils Percent Auto 0.6 % (0-4.4); Hematocrit 45.2 % (37.0-47.0); Hemoglobin 14.8 g/dL (12.0-15.0); Immature Granulocyte Absolute 0.02 K/mm3 (0.00-0.031); Immature Granulocyte Percent A 0.2 % (0-0.5); Lymphocytes Absolute Auto 0.61 K/mm3 (0.9-3.2); Lymphocytes Percent Auto 6.7 % (18.3-44.2); Mean Corpuscular HGB Conc 32.7 g/dl (32-36); Mean Corpuscular Hemoglobin 27.5 pg (26-34); Mean Platelet Volume 9.6 fl (7.4-10.4); Monocytes Absolute Auto 0.3 K/mm3 (0.1-0.6); Monocytes Percent Auto 2.9 % (2.6-8.5); Neutrophils Absolute Auto 8.1 K/mm3 (1.3-6.7); Neutrophils Percent Auto 89.5 % (45.5-73.1); Platelet Count Result 247 k/mm3 (150-375); Red Blood Count 5.38 M/mm3 (4.2-5.4); Red Cell Distribution Width 14.3 % (11.5-14.5)
[2024-01-03] MEDS: PANTOPRAZOLE SODIUM IV 40 MG VIAL IV PUSH (04:49)
[2024-01-03] MEDS: MORPHINE SULFATE (*CRX) 4 MG/ML INJ IV PUSH (04:49)
[2024-01-03] MEDS: ASPIRIN 81 MG CHEWABLE TABLET 324 MG PO (04:49)
[2024-01-03] MEDS: ONDANSETRON INJ 4 MG/2 ML VIAL IV PUSH (04:49)
[2024-01-03] MEDS: SODIUM CHLORIDE 0.9% IV 1,000 ML 999 ML (04:55)
[2024-01-03 04:57] LABS: Alanine Aminotransferase 42 U/L (6-35); Albumin Level 4.5 g/dL (3.5-5.1); Alkaline Phosphatase 95 U/L (38-126); Anion Gap 8 mmol/L (4-12); Aspartate Amino Transferase 37 U/L (14-36); Bilirubin,Total 0.8 mg/dL (0.2-1.3); Blood Urea Nitrogen 14 mg/dL (7-17); Calcium 9.1 mg/dL (8.4-10.2); Carbon Dioxide 24 mmol/L (22-30); Chloride 105 mmol/L (98-107); Estimated CRCL calculation 113 ml/min; Estimated Glomerular Filt Rate > 60; Glucose 132 mg/dL (65-110); Lipase 52 U/L (23-300); Partial Thromboplastin Time 27.9 Seconds (22.3-36.8); Potassium 3.9 mmol/L (3.4-5.0); Sodium 137 mmol/L (137-145)
--- NOTE | 2024-01-03 04:58 | PC.NURSE ---
per edp dr. talley pt to receive 1L bolus of normal saline at a rate of 999mls/ hour. this rn to used closed loop communication to confirm 1L bolus of normal saline. edp dr. talley confirmed rate/ medication/ patient/ route/ time.
[2024-01-03 05:06] LABS: NT Pro B Type Natriuretic Pept < 20 pg/mL (19.9-100)
[2024-01-03 05:55] LABS: Appearance Urine Cloudy (Clear); Bacteria Urine Rare /hpf; Bilirubin Urine Negative (Negative); Blood Urine Negative (Negative); Color Urine Yellow (Yellow); Glucose Urine UA Negative (Negative); Ketones Urine 4+ mg/dL (Negative); Leukocyte Esterase Ur Negative LEU/UL (Negative); Nitrate Urine Negative (Negative); Non Pathogenic Casts 0-2; Protein Urine Trace mg/dL (Negative); Specific Grav Ur 1.024 (1.001-1.035); Squamous Epithelial Cell Urine Moderate /hpf (Few)
[2024-01-03 05:56] LABS: Add Urine Microscopic? YES
[2024-01-03 06:06] LABS: Troponin I < 0.012 ng/mL (0.000-0.034)
== END 2024-01-03 06:55 | disposition home or self-care (01) ==
PROVIDERS: Emergency Provider Emergency Medicine; PCP Nurse Practitioner Family
DX: R07.89 Other chest pain (principal); R10.13 Epigastric pain
CPT/HCPCS: 36415; 71045; 71275; 74177; 80053; 81001; 81025; 83690; 83880; 84484; 85025; 85610; 85730; 87086; 93005; 96361; 96374; 96375; 99284; A9270; J2270; J2405; J2470; J7030; Q9967

== ENCOUNTER 2025-02-08 13:06 | Outpatient (CLI) | payer OTHER, SELFPAY ==
--- OUTSIDE RECORDS SUMMARY | 2025-02-08 13:14 | XMS_ITS | Clinical Summary ---
Author Organization [facility] at the Medical Office Building Address [address] [place] [address] Care Team Providers Care Transformer Coil Winder Name Role Phone Brittany Santo NP Primary Care Provider [phone] Allergies No known active allergies Medications valACYclovir (VALTREX) 500 mg tablet Take 1 tablet (500 mg total) by mouth daily 30 tablet 10 4 Active dextroamphetamine- amphetamine (ADDERALL) 10 mg tabletIndications: Attention deficit hyperactivity disorder (ADHD), predominantly inattentive type Take 1 tablet (10 mg total) by mouth daily 30 tablet 5 Active dextroamphetamine- amphetamine XR (ADDERALL XR) 10 mg 24 hr capsuleIndications :Attention deficit hyperactivity disorder (ADHD), predominantly inattentive type Take 1 capsule (10 mg total) by mouth every morning 30 capsule 5 Active Active Problems Problem Noted Date Diagnosed Date Hot flashes 10/20/2024 Epigastric pain 01/17/2024 Elevated liver enzymes 01/17/2024 Overview (01/17/2024): Have Liver ultrasound completed BMI 30.0-30.9,adult 01/29/2023 Assessment & Plan (10/20/2024 3:21 PM CDT): Discussed the patients BMI: The BMI is above average BMI management is complete. BMI follow-up includes: Nutrition Counseling and education provided Assessment & Plan (01/20/2024 1:14 PM CDT): Discussed the patients BMI: The BMI is above average BMI management is complete. BMI follow-up includes: Nutrition Counseling and education provided Assessment & Plan (01/05/2024 3:29 PM CDT): Discussed the patients BMI: The BMI is above average BMI management is complete. BMI follow-up includes: Nutrition Counseling and education provided Assessment & Plan (03/30/2023 10:42 AM CDT): Discussed the patients BMI: The BMI is above average BMI management is complete. BMI follow-up includes: Nutrition Counseling and education provided Assessment & Plan (01/29/2023 8:38 AM CDT): Discussed the patients BMI: The BMI is above average BMI management is complete. BMI follow-up includes: Nutrition Counseling and education provided Attention deficit hyperactiv ity disorder (ADHD), predominantly inattentive type 01/29/2023 Anxiety 11/25/2022 11/25/2022 Genital herpes simplex 11/25/2022 3 HSV-2 (herpes simplex virus 2) infection 022 Physical exam, annual 07/09/2021 Assessment & Plan (07/09/2021 2:34 PM ADJUSTER AND INSPECTOR): Will send in swab, send patient for labs. Will notify her of results as available. Vaginal discharge 07/09/2021 Assessment & Plan (07/09/2021 2:35 PM ADJUSTER AND INSPECTOR): Will send in swab, send patient for labs. Will notify her of results as available. Vaginal odor 07/09/2021 Assessment & Plan (07/09/2021 2:35 PM ADJUSTER AND INSPECTOR): Will send in swab, send patient for labs. Will notify her of results as available. Vaginal itching 07/09/2021 Assessment & Plan (07/09/2021 2:35 PM ADJUSTER AND INSPECTOR): Will send in swab, send patient for labs. Will notify her of results as available. Depression 10/21/2016 Resolved Problems Problem Noted Date Diagnosed Date Resolved Date Obesity, morbid, BMI 40.0-49.9 11/25/2022 01/20/2024 Assessment & Plan (12/02/2023 3:12 PM CDT): Discussed the patient's BMI. The BMI is above average. BMI management plan is completed. BMI Follow-up includes: nutrition counseling, exercise counseling and education provided. Assessment & Plan (06/07/2023 2:43 PM ADJUSTER AND INSPECTOR): Discussed the patient's BMI. The BMI is above average. BMI management plan is completed. BMI Follow-up includes: nutrition counseling, exercise counseling and education provided. Assessment & Plan (11/25/2022 1:48 PM CDT): Discussed the patients BMI: The BMI is above average BMI management is complete. BMI follow-up includes: Nutrition Counseling and education provided Gestational diabetes mellitus 11/25/2022 11/25/2022 03/30/2023 Immunizations Immunization Administration Dates Next Due Influenza, Quadrivalent, Spl it, Preservative Free, Intramuscular 03/30/2016,04/17/2015 Influenza, Unspecified 07/05/2023(Deferr ed: Patient Refused),07/05/2023(Deferred: Patient Refused),07/05/2023(Deferred: Patient Refused),06/07/2023(Deferred: Patient Refused),01/29/2023(Deferred: Patient Refused),11/25/2022(Deferred: Patient Refused),07/05/2022(Deferred: Patient Refused),07/05/2022(Deferred: Patient Refused),08/06/2021(Deferred: Patient Refused),08/05/2021(Deferred: Patient Refused),08/05/2021(Deferred: Patient Refused) Surgical History Surgery Date Site/Laterality Comments TONSILLECTOMY ADENOIDECTOMY WISDOM TOOTH EXTRACTION TONSILLECTOMY Medical History Medical History Date Comments PMDD (premenstrual dysphoric disorder) Anxiety Cholestasis (HCC) Family History Medical History Relation Name Comments No Known Problems Father Arthritis Mother Endometriosis Mother Hypertension Mother Kidney disease Mother Mental illness Mother Stroke Mother Breast cancer Neg Hx Relation Name Status Comments Father Alive Mother Alive Social History Tobacco Use Types Packs/Day Years Used Date Smoking Tobacco: Never Smokeless Tobacco: Never Tobacco Cessation:Counseling Given: Not Answered Alcohol Use Standard Drinks/Week Comments Not Currently 0 (1 standard drink = 0.6 oz pur e alcohol) PHQ-2 Answer Date Recorded PHQ-2 Total Score (If total score is 3 or more points, staff should administer the PHQ-9) 0 10/20/2024 Comments No Sex and Gender Information Value Date Recorded Sex Assigned at Not on file Legal Sex Female 9:01 PM ADJUSTER AND INSPECTOR Gender Identity Not on file Sexual Orientation Not on file Obstetrics History Para Term AB IAB SAB Ectopic Multiple Livin g Live Births 0 0 0 0 0 0 0 0 0 0 0 Last Filed Vital Signs Vital Sign Reading Time Taken Comments Blood Pressure 120/60 10/20/2024 3:17 PM CDT Pulse 69 10/20/2024 3:17 PM CDT Temperature 36.7 C (98.1 F) 05/01/2024 10:45 AM CDT Respiratory Rate - - Oxygen Saturation 99% 10/20/2024 3:17 PM CDT Inhaled Oxygen Concentration - - Weight 78.5 kg (173 lb) 10/20/2024 3:17 PM CDT Height 160 cm (5' 3) 10/20/2024 3:17 PM CDT Body Mass Index 30.65 10/20/2024 3:17 PM CDT Plan of Treatment Health Maintenance Due Date Last Done Comments DTaP/Tdap/Td Vaccine (1 - Tdap) 2003 Varicella Vaccines (1 of 2 - 13+ 2-dose series) 2005 Hepatitis B Screening 2010 Cervical Cancer Screening 10/21/2017 10/21/2016, 10/2015 HPV Vaccines (1 - 3-dose SCDM series) 2019 Influenza Vaccine (#1) 2025 03/30/2016, 2014 Regular Well Visit/Exam 18-64 05/01/2025 05/01/2024, 11/25/2022, 04/07/2021, Additional history exists Depression Screening 10/20/2025 10/20/2024, 05/01/2024, 01/20/2024, Additional history exists Hepatitis C Screening Completed 07/09/2021 , 06/21/2020, 05/02/2019, Additional history exists Pneumococcal vaccine <65 Aged Out No longer eligible based on patient's age to complete this topic Procedures Procedure Name Priority Date/Time Associated Diagnosis Comments HEPATITIS C ANTIBODY Routine 07/09/2021 1:57 PM ADJUSTER AND INSPECTOR Routine screening for STI (sexually transmitted infection) THINPREP TIS PAP REFLEX HPV MRNA E6/E7, CHLAMYDIA/N.GONORRH OEAE Routine 10/21/2016 11:08 AM CDT from Last 3 Months or Most Recently Relevant to Health Maintenance Results * Hepatitis C antibody (07/09/2021 1:57 PM ADJUSTER AND INSPECTOR) Hep C Ab Nonreactive Nonreactive [facility]ARKE Comment: Interpretive Data Nonreactive: Antibodies to HCV not detected. Does NOT exclude the possibility of recent exposure to HCV. Equivocal: Equivocal for HCV antibodies. Supplemental molecular testing will be automatically performed to determine infection status in accordance with current CDC screening recommendations. Reactive: Positive for HCV antibodies. This may represent current or past HCV infection. Supplemental molecular testing will be automatically performed to determine current infection status in accordance with current CDC screening recommendations. Interpretive data was last revised on 2019. Blood 07/09/2021 1:57 PM ADJUSTER AND INSPECTOR 07/09/2021 6:43 PM ADJUSTER AND INSPECTOR Harleen HASSAN LAB MICROBIOLOGY - GENERAL ORDERABLES Final Result [id number] [id number] [facility] Department [place] [address] * THINPREP TIS PAP REFLEX HPV mRNA E6/E7, CHLAMYDIA/N.GONORRHOEAE (10/21/2016 11:08 AM CDT) CLINICAL INFORMATION [facility] HISTORICAL RESULTS Comment:Information not prov ided LMP: 09/20/16 [facility] HISTORICAL RESULTS PREV. PAP: [facility] RESULTS Comment:INFORMATION NOT PROV IDED PREV. BX: [facility] HISTORICAL RESULTS Comment:INFORMATION NOT PROV IDED SOURCE: [facility] HISTORICAL RESULTS Comment:Cervix, Endocervix STATEMENT OF ADEQUACY: [facility] HISTORICAL RESULTS Comment:Satisfactory for ana luation. Endocervical/transformation zone component present. INTERPRETATION/RES ULT: [facility] RESULTS Comment:Negative for intraep ithelial lesion or malignancy. COMMENT: [facility] HISTORICAL RESULTS Comment:This Pap test has be en evaluated with computer assisted technology. REGISTERED RESPIRATORY THERAPIST: [facility] HISTORICAL RESULTS Comment:AIDA, CT(ASCP) CT scr eening location: [place] [address] [place] [address] C. trachomatis RNA NOT DETECTED NOT DETECTED [facility] HISTORICAL RESULTS N. gonorrhoeae RNA NOT DETECTED NOT DETECTED [facility] HISTORICAL RESULTS COMMENT [facility] HISTORICAL RESULTS Comment: This test was performed using the APTIMA COMBO2 Assay ([employer] The analytical performance characteristics of this assay, when used to test SurePath specimens have been determined by [employer]. 10/21/2016 11:0 8 AM CDT 10/26/2016 3:05 PM CDT Narrative [facility] HISTORICAL RESULTS - 10/26/2016 2:39 PM CDT 0 PERFORMING LAB: [facility] [place] [address] [place] [address] Earlene Stewart MD Marcel Ornelas DO LAB PATHOLOGY ORDERABL ES Final Result [facility] HISTORICAL RESULTS from Last 3 Months or Most Recently Relevant to Health Maintenance Insurance [facility] Care Teams Transformer Coil Winder Relationship Specialty Start Date End Date Brittany Santo NP [address] [facility] [address] [place] [address] PCP - General Internal Medicine 11/25/22
--- OUTSIDE RECORDS SUMMARY | 2025-02-08 13:14 | XMS_ITS | Continuity of Care Document ---
Author Organization [facility] Address [address] [employer] [facility] [place] [address] Phone Care Team Providers Care Sand Slinger Operator Name Role Phone Mart Hernandez MD Unavailable Unavailable Advance Directives Directive Yes / No Effective Date File Name No Information Encounters Encounter Description Practice Location Reason(s) For Visit Diagnoses Date Provider Providers Copied on Encounter [facility], [address] [employer] [place], [id number], [place] tel:[phone] [facility] No Information David Cevallos. [address] [facility] [place], [id number], [place]. tel:[phone] Family History Family Member Type Diagnosis Age At Onset No Information Payers Payer name Insurance type Covered green party ID Authoriza tion(s) No Information Social History Type Description Quantity Date Captured Comments Sex Female Smoking Status No Information Chief Complaint And Reason For Visit No Information Plan Of Treatment Date Type Action Status No Information History Of Present Illness Encounter Date Complaint History Of Prese nt Illness No Information Instructions Date Instruction Additional Infor mation No Information Assessments Type Assessment Date No Information
--- OUTSIDE RECORDS SUMMARY | 2025-02-08 13:14 | XMS_ITS | Clinical Summary ---
Author Organization [facility] Address [address] [place] [address] Care Team Providers Care Fine Unhairer Name Role Phone Unavailable Primary Care Provider Unavailabl e Social History Tobacco Use Types Packs/Day Years Used Date Smoking Tobacco: Never Assessed Comments Unknown Sex and Gender Information Value Date Recorded Sex Assigned at Not on file Legal Sex Female 7:53 AM CDT Gender Identity Not on file Sexual Orientation Not on file Last Filed Vital Signs Vital Sign Reading Time Taken Comments Blood Pressure 108/62 10/15/2010 2:00 PM CDT Pulse - - Temperature - - Respiratory Rate - - Oxygen Saturation - - Inhaled Oxygen Concentration - - Weight 68.9 kg (152 lb) 10/15/2010 2:00 PM CDT Height 160 cm (5' 3) 10/15/2010 2:00 PM CDT Body Mass Index 26.93 10/15/2010 2:00 PM CDT Plan of Treatment Health Maintenance Due Date Last Done Comments Cervical Cancer Screening Pa p Smear (Age 30 to 64) Every 3 Years 1992 Annual Physical 1995 Hepatitis C 2010 DTaP, Tdap and Td Vaccines ( 1 - Tdap) 2011 Hepatitis B Vaccines (1 of 3 - 19+ 3-dose series) 2011 HPV Vaccines (1 - 3-dose SCD M series) 2019 Cervical Cancer Screening Pa p with HPV Testing (Age 30 to 64) Every 5 Years 2022 Cervical Cancer Screening with HPV 2022 COVID-19 Vaccine ( - 2023-2 5 season) 2024 Meningococcal B Vaccine Aged Out No l onger eligible based on patient's age to complete this topic Meningococcal Vaccine Aged Out No nannette fernandez eligible based on patient's age to complete this topic Pneumococcal Vaccine: Pediat rics (0 to 5 Years) and At-Risk Patients (6 to 49 Years) Aged Out No longer eligible b ased on patient's age to complete this topic RSV Immunizations Under 20 Months Aged Out No longer eligible based on patient's age to complete this topic
[2025-02-08 14:22] LABS: Beta HCG Quantitative 29.58 mIU/ML
[2025-02-08 14:34] LABS: Syphilis IgG/IgM Antibody Non-Reactive (Nonreactive)
[2025-02-08 14:37] LABS: Hepatitis B Surface Antigen Negative (Negative)
[2025-02-08 14:42] LABS: Hepatitis B Core IgM Result Negative (Negative)
[2025-02-08 14:45] LABS: HIV 1/2 Ab P24 Ag Result Negative (Negative)
== END 2025-02-08 13:07 | disposition home or self-care (01) ==
LOC: ANHLAB 13:10
PROVIDERS: PCP Nurse Practitioner Family; Visit Provider Nurse Practitioner
DX: A64 Unspecified sexually transmitted disease (principal)
CPT/HCPCS: 36415; 84702; 86593; 86703; 86705; 86803; 86850; 86870; 86880; 86900; 86901; 86902; 86971; 87340; G0432

== ENCOUNTER 2025-02-10 13:43 | Outpatient (CLI) | payer OTHER, SELFPAY ==
--- OUTSIDE RECORDS SUMMARY | 2025-02-10 13:47 | XMS_ITS | Clinical Summary ---
Author Organization [facility] Address [address] [place] [address] Care Team Providers Care Fusion Juncture Grinder Name Role Phone Unavailable Primary Care Provider [...]
--- OUTSIDE RECORDS SUMMARY | 2025-02-10 13:47 | XMS_ITS | Clinical Summary ---
Author Organization [facility] at the Medical Office Building Address [address] [place] [address] Care Team Providers Care Gas Booster Engineer Name Role Phone Brittany Santo NP Primary Care Provider [phone] Allergies No known active allergies Medications valACYclovir [...] 07/09/2021 Assessment & Plan (07/09/2021 2:34 PM CONTINUOUS IMPROVEMENT INTERN): Will send in swab, send patient for labs. Will notify her of results as available. Vaginal discharge 07/09/2021 Assessment & Plan (07/09/2021 2:35 PM CONTINUOUS IMPROVEMENT INTERN): Will send in swab, send patient for labs. Will notify her of results as available. Vaginal odor 07/09/2021 Assessment & Plan (07/09/2021 2:35 PM CONTINUOUS IMPROVEMENT INTERN): Will send in swab, send patient for labs. Will notify her of results as available. Vaginal itching 07/09/2021 Assessment & Plan (07/09/2021 2:35 PM CONTINUOUS IMPROVEMENT INTERN): Will send in swab, send patient for [...] provided. Assessment & Plan (06/07/2023 2:43 PM CONTINUOUS IMPROVEMENT INTERN): Discussed the patient's BMI. The BMI is [...] on file Legal Sex Female 9:01 PM CONTINUOUS IMPROVEMENT INTERN Gender Identity Not on file Sexual Orientation [...] HEPATITIS C ANTIBODY Routine 07/09/2021 1:57 PM CONTINUOUS IMPROVEMENT INTERN Routine screening for STI (sexually transmitted infection) THINPREP TIS PAP REFLEX HPV MRNA E6/E7, CHLAMYDIA/N.GONORRH OEAE Routine 10/21/2016 11:08 AM CDT from Last 3 Months or Most Recently Relevant to Health Maintenance Results * Hepatitis C antibody (07/09/2021 1:57 PM CONTINUOUS IMPROVEMENT INTERN) Hep C Ab Nonreactive Nonreactive [facility] [...] revised on 2019. Blood 07/09/2021 1:57 PM CONTINUOUS IMPROVEMENT INTERN 07/09/2021 6:43 PM CONTINUOUS IMPROVEMENT INTERN Harleen HASSAN LAB MICROBIOLOGY - GENERAL ORDERABLES Final Result [facility] [id number] [facility] Department [place] [address] * THINPREP TIS PAP REFLEX HPV mRNA E6/E7, CHLAMYDIA/N.GONORRHOEAE (10/21/2016 11:08 AM CDT) CLINICAL INFORMATION [facility] HISTORICAL RESULTS Comment:Information not prov ided LMP: 09/20/16 [facility] HISTORICAL RESULTS PREV. PAP: [facility] Comment:INFORMATION NOT PROV IDED PREV. BX: [facility] HISTORICAL RESULTS Comment:INFORMATION NOT PROV IDED SOURCE: [facility] HISTORICAL RESULTS Comment:Cervix, Endocervix STATEMENT OF ADEQUACY: [facility] HISTORICAL RESULTS Comment:Satisfactory for ana luation. Endocervical/transformation zone component present. INTERPRETATION/RES ULT: [facility] RESULTS Comment:Negative for intraep ithelial lesion or malignancy. COMMENT: [facility] HISTORICAL RESULTS Comment:This Pap test has be en evaluated with computer assisted technology. UNDERGROUND FOREMAN: [facility] HISTORICAL RESULTS Comment:AIDA, CT(ASCP) CT scr eening location: [place] [address] [place] [id number] C. trachomatis RNA NOT DETECTED NOT DETECTED [facility] HISTORICAL RESULTS N. gonorrhoeae RNA NOT DETECTED NOT DETECTED [facility] HISTORICAL RESULTS COMMENT [facility] HISTORICAL RESULTS Comment: This test was performed using the APTIMA COMBO2 Assay ([employer] The analytical performance characteristics of this assay, when used to test SurePath specimens have been determined by [employer]. 10/21/2016 11:0 8 AM CDT 10/26/2016 3:05 PM CDT Narrative [facility] HISTORICAL RESULTS - 10/26/2016 2:39 PM CDT 0 PERFORMING LAB: [facility] [address] [place] [id number] Earlene Stewart MD Marcel Ornelas DO LAB PATHOLOGY ORDERABL ES Final Result [facility] HISTORICAL RESULTS from Last 3 Months or Most Recently Relevant to Health Maintenance Insurance [facility] Care Teams Gas Booster Engineer Relationship Specialty Start Date End Date Brittany Santo NP [address] [facility] [address] [place] [address] PCP - General Internal Medicine 11/25/22
--- OUTSIDE RECORDS SUMMARY | 2025-02-10 13:47 | XMS_ITS | Continuity of Care Document ---
Author Organization [facility] Address [address] [employer] [facility] [place] [address] Phone Care Team Providers Care Accounts Manager Name Role Phone Mart Hernandez MD Unavailable Unavailable Advance Directives Directive Yes / No Effective Date File Name No Information Encounters Encounter Description Practice Location Reason(s) For Visit Diagnoses Date Provider Providers Copied on Encounter [facility], [address] [employer] [place], [id number], [place] tel:[phone] [facility] No Information David Cevallos. [address] [employer] [facility] [place], [id number], [place]. tel:[phone] Family History Family Member Type Diagnosis Age At Onset No Information Payers Payer name Insurance type Covered constitution party ID Authoriza tion(s) No Information Social [...]
[2025-02-10 14:24] LABS: Beta HCG Quantitative 69.58 mIU/ML
== END 2025-02-10 13:44 | disposition home or self-care (01) ==
LOC: ANHLAB 13:46
PROVIDERS: PCP Nurse Practitioner Family; Visit Provider Nurse Practitioner
DX: Z32.01 Encounter for pregnancy test, result positive (principal)
CPT/HCPCS: 36415; 84702

== ENCOUNTER 2025-02-13 16:59 | Outpatient (CLI) | payer OTHER, SELFPAY ==
--- OUTSIDE RECORDS SUMMARY | 2025-02-13 17:04 | XMS_ITS | Clinical Summary ---
Author Organization [facility] Address [address] [place] [address] Care Team Providers Care Conche Loader And Unloader Name Role Phone Unavailable Primary Care Provider [...]
--- OUTSIDE RECORDS SUMMARY | 2025-02-13 17:04 | XMS_ITS | Clinical Summary ---
Author Organization [facility] at the Medical Office Building Address [address] [place] [address] Care Team Providers Care Poly Packer And Heat Sealer Name Role Phone Brittany Santo NP Primary Care Provider [phone] Allergies No known active allergies Medications valACYclovir (VALTREX) 500 mg tablet Take 1 tablet (500 mg total) by mouth daily 30 tablet 10 4 Active dextroamphetamine -amphetamine (ADDERALL) 10 mg tabletIndications :Attention deficit hyperactivity disorder (ADHD), predominantly inattentive type Take 1 tablet (10 mg total) by mouth daily 30 tablet 5 Active dextroamphetamine -amphetamine XR (ADDERALL XR) 10 mg 24 hr capsuleIndication s:Attention deficit hyperactivity disorder (ADHD), predominantly inattentive type Take 1 capsule (10 mg total) by mouth every morning 30 capsule 5 Active dextroamphetamine -amphetamine (ADDERALL) 10 mg tabletIndications :Attention deficit hyperactivity disorder (ADHD), predominantly inattentive type Take 1 tablet (10 mg total) by mouth daily 30 tablet 5 02/13/20 25 Discontinu ed(Reorder ) dextroamphetamine -amphetamine XR (ADDERALL XR) 10 mg 24 hr capsuleIndication s:Attention deficit hyperactivity disorder (ADHD), predominantly inattentive type Take 1 capsule (10 mg total) by mouth every morning 30 capsule 5 08/11/20 25 Discontinu ed(Reorder ) Active Problems Problem Noted Date Diagnosed Date [...] 07/09/2021 Assessment & Plan (07/09/2021 2:34 PM BAKERY TECHNICIAN): Will send in swab, send patient for labs. Will notify her of results as available. Vaginal discharge 07/09/2021 Assessment & Plan (07/09/2021 2:35 PM BAKERY TECHNICIAN): Will send in swab, send patient for labs. Will notify her of results as available. Vaginal odor 07/09/2021 Assessment & Plan (07/09/2021 2:35 PM BAKERY TECHNICIAN): Will send in swab, send patient for labs. Will notify her of results as available. Vaginal itching 07/09/2021 Assessment & Plan (07/09/2021 2:35 PM BAKERY TECHNICIAN): Will send in swab, send patient for [...] provided. Assessment & Plan (06/07/2023 2:43 PM BAKERY TECHNICIAN): Discussed the patient's BMI. The BMI is [...] on file Legal Sex Female 9:01 PM BAKERY TECHNICIAN Gender Identity Not on file Sexual Orientation [...] HEPATITIS C ANTIBODY Routine 07/09/2021 1:57 PM BAKERY TECHNICIAN Routine screening for STI (sexually transmitted infection) THINPREP TIS PAP REFLEX HPV MRNA E6/E7, CHLAMYDIA/N.GONORRH OEAE Routine 10/21/2016 11:08 AM CDT from Last 3 Months or Most Recently Relevant to Health Maintenance Results * Hepatitis C antibody (07/09/2021 1:57 PM BAKERY TECHNICIAN) Hep C Ab Nonreactive Nonreactive [facility]AS Comment: Interpretive Data Nonreactive: Antibodies to HCV [...] revised on 2019. Blood 07/09/2021 1:57 PM BAKERY TECHNICIAN 07/09/2021 6:43 PM BAKERY TECHNICIAN Harleen HASSAN LAB MICROBIOLOGY - GENERAL ORDERABLES Final Result [facility]AS [address] [facility] [place] [address] * THINPREP TIS PAP REFLEX HPV mRNA E6/E7, CHLAMYDIA/N.GONORRHOEAE (10/21/2016 11:08 AM CDT) [facility]INICAL INFORMATION [facility] H[facility] RESULTS Comment:Information not prov ided LMP: 09/20/16 [facility] PREV. PAP: [facility] Comment:INFORMATION NOT PROV IDED PREV. BX: [facility] HISTORICAL RESULTS Comment:INFORMATION NOT PROV IDED SOURCE: [facility] HISTORICAL RESULTS Comment:Cervix, Endocervix STATEMENT OF ADEQUACY: [facility] HISTORICAL RESULTS Comment:Satisfactory for ana luation. Endocervical/transformation zone component present. INTERPRETATION/RES ULT: [facility] HISTORICAL RESULTS Comment:Negative for intraep ithelial lesion or malignancy. COMMENT: [facility] HISTORICAL RESULTS Comment:This Pap test has be en evaluated with computer assisted technology. HEAT TREATMENT TECHNICIAN: [facility] EC HISTORICAL RESULTS Comment:AIDA, CT(ASCP) CT scr eening location: [place] [address] [place] [address] C. trachomatis RNA NOT DETECTED NOT DETECTED [facility] EC HISTORICAL RESULTS N. gonorrhoeae RNA NOT DETECTED NOT DETECTED [facility] HISTORICAL RESULTS COMMENT [facility] HISTORICAL RESULTS Comment: This test was performed using the APTIMA COMBO2 Assay ([employer] The analytical performance characteristics of this assay, when used to test SurePath specimens have been determined by [employer]. 10/21/2016 11:0 8 AM CDT 10/26/2016 3:05 PM CDT Narrative [facility] HISTORICAL RESULTS - 10/26/2016 2:39 PM CDT 0 PERFORMING LAB: [facility] [place] [address] [place] [address] Earlene Setwart MD Marcel Ornelas DO LAB PATHOLOGY ORDERABL ES Final Result Performing Organization Address City/[facility]/ZIP Co de Phone Number [facility] HISTORICAL RESULTS from Last 3 Months or Most Recently Relevant to Health Maintenance Insurance [facility] Care Teams Poly Packer And Heat Sealer Relationship Specialty Start Date End Date Brittany Santo NP [phone] [address] PCP - General Internal Medicine 11/25/22
[2025-02-13 17:59] LABS: Beta HCG Quantitative 172.46 mIU/ML
== END 2025-02-13 17:00 | disposition home or self-care (01) ==
LOC: ANHLAB 17:02
PROVIDERS: PCP Nurse Practitioner Family; Visit Provider Obstetrics & Gynecology
DX: Z34.90 Encounter for supervision of normal pregnancy, unspecified, unspecified trimester (principal); Z3A.00 Weeks of gestation of pregnancy not specified
CPT/HCPCS: 36415; 84702

== ENCOUNTER 2025-02-19 17:46 | Outpatient (CLI) | payer OTHER, SELFPAY ==
--- OUTSIDE RECORDS SUMMARY | 2025-02-19 17:52 | XMS_ITS | Clinical Summary ---
Author Organization [facility] Address [address] [place] [address] Care Team Providers Care Public Space Attendant Name Role Phone Unavailable Primary Care Provider [...]
--- OUTSIDE RECORDS SUMMARY | 2025-02-19 17:52 | XMS_ITS | Clinical Summary ---
Author Organization [facility] at the Medical Office Building Address [address] [place] [address] Care Team Providers Care Parking Attendant Name Role Phone Brittany Santo NP Primary Care Provider [phone] Allergies No known active allergies Medications valACYclovir [...] 07/09/2021 Assessment & Plan (07/09/2021 2:34 PM SIZING SPONGER): Will send in swab, send patient for labs. Will notify her of results as available. Vaginal discharge 07/09/2021 Assessment & Plan (07/09/2021 2:35 PM SIZING SPONGER): Will send in swab, send patient for labs. Will notify her of results as available. Vaginal odor 07/09/2021 Assessment & Plan (07/09/2021 2:35 PM SIZING SPONGER): Will send in swab, send patient for labs. Will notify her of results as available. Vaginal itching 07/09/2021 Assessment & Plan (07/09/2021 2:35 PM SIZING SPONGER): Will send in swab, send patient for [...] provided. Assessment & Plan (06/07/2023 2:43 PM SIZING SPONGER): Discussed the patient's BMI. The BMI is [...] on file Legal Sex Female 9:01 PM SIZING SPONGER Gender Identity Not on file Sexual Orientation [...] HEPATITIS C ANTIBODY Routine 07/09/2021 1:57 PM SIZING SPONGER Routine screening for STI (sexually transmitted infection) THINPREP TIS PAP REFLEX HPV MRNA E6/E7, CHLAMYDIA/N.GONORRH OEAE Routine 10/21/2016 11:08 AM CDT from Last 3 Months or Most Recently Relevant to Health Maintenance Results * Hepatitis C antibody (07/09/2021 1:57 PM SIZING SPONGER) Hep C Ab Nonreactive Nonreactive [facility]AS Comment: [...] revised on 2019. Blood 07/09/2021 1:57 PM SIZING SPONGER 07/09/2021 6:43 PM SIZING SPONGER Harleen HASSAN LAB MICROBIOLOGY - GENERAL ORDERABLES Final Result [facility] [address] [facility] [place] [address] * THINPREP TIS PAP REFLEX HPV mRNA E6/E7, CHLAMYDIA/N.GONORRHOEAE (10/21/2016 11:08 AM CDT) [facility] Comment:Information not prov ided LMP: 09/20/16 [facility]ULTS PREV. PAP: [facility]ULTS Comment:INFORMATION NOT PROV IDED PREV. BX: [facility] HISTORICAL RESULTS Comment:INFORMATION NOT PROV IDED SOURCE: [facility] HISTORICAL RESULTS Comment:Cervix, Endocervix STATEMENT OF ADEQUACY: [facility] HISTORICAL RESULTS Comment:Satisfactory for ana luation. Endocervical/transformation zone component present. INTERPRETATION/RES ULT: [facility] HISTORICAL RESULTS Comment:Negative for intraep ithelial lesion or malignancy. COMMENT: [facility] HISTORICAL RESULTS Comment:This Pap test has be en evaluated with computer assisted technology. PHYSICS TEACHER: [facility] EC HISTORICAL RESULTS Comment:AIDA, CT(ASCP) CT scr eening location: [place] [address] [place] [address] C. trachomatis RNA NOT DETECTED NOT DETECTED [facility] EC HISTORICAL RESULTS N. gonorrhoeae RNA NOT DETECTED NOT DETECTED [facility] HISTORICAL RESULTS COMMENT [facility] HISTORICAL RESULTS Comment: This test was performed using the APTIMA COMBO2 Assay ([employer] The analytical performance characteristics of this assay, when used to test SurePath specimens have been determined by [employer]. 10/21/2016 11:0 8 AM CDT 10/26/2016 3:05 PM CDT Narrative [facility] HISTORICAL RESULTS - 10/26/2016 2:39 PM CDT 0 PERFORMING LAB: [facility] [place] [address] [place] [address] Earlene Stewart MD Marcel Ornelas DO LAB PATHOLOGY ORDERABL ES Final Result Performing Organization Address City/[facility]/ZIP Co de Phone Number [facility] HISTORICAL RESULTS from Last 3 Months or Most Recently Relevant to Health Maintenance Insurance [facility] Care Teams Parking Attendant Relationship Specialty Start Date End Date Brittany Santo NP [phone] [address] PCP - General Internal Medicine 11/25/22
--- OUTSIDE RECORDS SUMMARY | 2025-02-19 17:52 | XMS_ITS | Continuity of Care Document ---
Author Organization [facility] Address [address] [facility] [place] [address] Phone Care Team Providers Care Lug Breaker And Wire Puller Name Role Phone Mart Hernandez MD Unavailable Unavailable Advance Directives Directive Yes / No Effective Date File Name No Information Encounters Encounter Description Practice Location Reason(s) For Visit Diagnoses Date Provider Providers Copied on Encounter [facility], [address] [place] [id number], [place] tel:[phone] [facility] No Information David Cevallos. [address] [facility] [place], [id number], [place]. tel:[phone] Family History Family Member Type Diagnosis Age [...]
[2025-02-19 18:47] LABS: Beta HCG Quantitative 9.84 mIU/ML
== END 2025-02-19 17:47 | disposition home or self-care (01) ==
LOC: ANHLAB 17:50
PROVIDERS: PCP Nurse Practitioner Family; Visit Provider Obstetrics & Gynecology
DX: Z34.90 Encounter for supervision of normal pregnancy, unspecified, unspecified trimester (principal)
CPT/HCPCS: 36415; 84702